=== PATIENT | female | born 1995 | race Caucasian/White ===

== ENCOUNTER 2016-07-12 21:25 | Emergency (ER) | payer OTHER ==
[2016-07-12 21:49] VITALS: BP 139/74
--- NOTE | 2016-07-12 23:08 | UC ---
Throat Pain/Nasal Jamie HPI - HPI Summary HPI Summary: [address] AND PAIN WITH SWALLOWING. NO FEVER, COUGH, NAUSEA OR EAR PAIN. - History of Current Complaint Chief Complaint: UCRespiratory Stated Complaint: SWOLLEN TONSILS WITH WHITE SPOTS Time Seen by Provider: 07/12/16 21:56 Hx Obtained From: Patient Hx Last Menstrual Period: 3 wks ago Onset/Duration: Gradual Onset, Lasting Days, Still Present Severity: Moderate Pain Intensity: 2 Pain Scale Used: 0-10 Numeric Cough: None Associated Signs & Symptoms: Negative: Wheezing, Hoarseness, Sinus Discomfort, Nasal Discharge, Fever, Vomiting, Rash - Allergies/Home Medications Allergies/Adverse Reactions: Allergies Allergy/AdvReac Type Severity Reaction Status Date / Time No Known Allergies Allergy Verified 07/12/16 21:49 Home Medications: Home Medications Esomeprazole Magnesium [Nexium 24Hr] 07/12/16 [History] PMH/Surg Hx/FS Hx/Imm Hx Previously Healthy: Yes - Surgical History Surgical History: None - Family History Known Family History: Positive: Hypertension - Social History Alcohol Use: Occasionally Substance Use Type: None Smoking Status (MU): Never Smoked Tobacco Review of Systems Constitutional: Negative ENT: Sore Throat Respiratory: Negative Cardiovascular: Negative Gastrointestinal: Negative All Other Systems Reviewed And Are Negative: Yes Physical Exam Triage Information Reviewed: Yes Appearance: Well-Appearing, No Pain Distress, Well-Nourished Vital Signs: Initial Vital Signs Temp 98.9 F 07/12/16 21:47 Pulse 74 07/12/16 21:47 Resp 18 07/12/16 21:47 BP 139/74 07/12/16 21:47 Pulse Ox 99 07/12/16 21:47 Vital Signs Reviewed: Yes Eyes: Positive: Conjunctiva Clear ENT: Positive: Hearing grossly normal, Pharynx normal, TMs normal, Tonsillar swelling. Negative: Pharyngeal erythema, Tonsillar exudate, Muffled/hoarse voice Neck: Positive: Supple, Tenderness @ - SPFL CERVICAL LAD, Enlarged Nodes @ - SPFL CERVICAL LAD Respiratory Exam: Normal Cardiovascular Exam: Normal Abdomen Description: Positive: Soft Musculoskeletal: Positive: No Edema Neurological: Positive: Alert Psychological: Positive: Age Appropriate Behavior Skin: Negative: rashes Diagnostics - Laboratory Diagnostic Studies Completed/Ordered: RAPID STREP NEGATIVE Throat Pain/Nasal Course/Dx - Differential Dx/Diagnosis Provider Diagnoses: ACUTE TONSILLITIS Discharge - Discharge Plan Condition: Stable Disposition: HOME Patient Education Materials: Tonsillitis (ED) Referrals: [facility] EARNEST Haddad [Primary Care Provider] - If Needed Additional Instructions: RAPID STREP NEGATIVE. NO INDICATION FOR ANTIBIOTICS AT PRESENT. LIKELY VIRAL ETIOLOGY. HYDRATE, OTC MEDS NEEDED. OTC CHLORASEPTIC OR CEPACOL LOZENGES FOR SORE THROAT NEEDED. SEEK FOLLOW-UP IF NOT IMPROVING EXPECTED OVER THE NEXT 1-2 WEEKS.
== END 2016-07-12 23:16 | disposition home or self-care (01) ==
LOC: UCEAST 21:25
DX: J03.90 Acute tonsillitis, unspecified (principal)
CPT/HCPCS: 87651; 99211; G0463

== ENCOUNTER 2016-08-14 13:15 | Emergency (ER) | payer OTHER ==
[2016-08-14 14:06] VITALS: BP 111/67
--- NOTE | 2016-08-14 16:28 | UC ---
Dizzy HPI HPI Summary: The patient comes in today for: 1. Vertigo: Onset: Today Palliative/provocative: Staying in one position makes it better. Head movements makes it worse. Quality: Spinning. Region: Head Severity: 07/01 Time: Constant, but severity varies. Associated symptoms: Event of onset: She was in bed and turned. At that time, there was a spinning sensation. Head injury: None. Nausea: present--worse with vertigo being worse. Fever: None. * - History Of Current Complaint Chief Complaint: UCDizziness Stated Complaint: VERTIGO Time Seen by Provider: 08/14/16 16:17 Hx Obtained From: Patient Hx Last Menstrual Period: 08/07/16 ?: No - Allergies/Home Medications Allergies/Adverse Reactions: Allergies Allergy/AdvReac Type Severity Reaction Status Date / Time No Known Allergies Allergy Verified 07/12/16 21:49 PMH/Surg Hx/FS Hx/Imm Hx Previously Healthy: No - Family planning/BCP Endocrine History Of: Denies: Diabetes, Thyroid Disease, Hyperthyroidism, Hypothyroidism, Dyslipidemia Cardiovascular History Of: Denies: Cardiac Disorders, Hypertension, Pacemaker/ICD, Myocardial Infarction , Congestive Heart Failure, Atrial Fibrillation, Deep Vein Thrombosis, Bleeding Disorders Respiratory History Of: Denies: COPD, Asthma, Bronchitis, Pneumonia, Pulmonary Embolism GI/ History Of: Reports: Gastroesophageal Reflux - No medications for this "little bit lately." Denies: Ulcer, Gastrointestinal Bleed, Gall Bladder Disease, Kidney Stones, Diverticulitis, Renal Disease, Urosepsis Neurological History Of: Denies: TIA, CVA, Dementia, Seizures, Migraine Psychological History Of: Denies: Anxiety, Depression, Bipolar Disorder, Schizophrenia, Post Traumatic Stress Disorder Cancer History Of: Denies: Lung Cancer, Colorectal Cancer, Breast Cancer, Prostate Cancer, Cervical Cancer Other History Of: Negative For: HIV, Hepatitis B, Hepatitis C, Anticoagulant Therapy - Surgical History Surgical History: None - Family History Known Family History: Positive: Hypertension Negative: None, Cardiac Disease, Diabetes - Social History Occupation: Student Alcohol Use: Occasionally Substance Use Type: Marijuana Smoking Status (MU): Never Smoked Tobacco Review of Systems Constitutional: Negative Skin: Negative Eyes: Negative ENT: Negative Respiratory: Negative Cardiovascular: Negative Gastrointestinal: Negative Genitourinary: Negative All Other Systems Reviewed And Are Negative: Yes Physical Exam Triage Information Reviewed: Yes Appearance: Well-Appearing, No Pain Distress, Well-Nourished Vital Signs: Initial Vital Signs Temp 98.5 F 08/14/16 14:00 Pulse 69 08/14/16 14:00 Resp 16 08/14/16 14:00 BP 111/67 08/14/16 14:00 Pulse Ox 100 08/14/16 14:00 Vital Signs Reviewed: Yes Eyes: Positive: Conjunctiva Clear. Negative: Discharge ENT: Positive: Hearing grossly normal. Negative: Pharyngeal erythema, Nasal congestion, Nasal drainage, TM bulging, TM dull, TM red, Tonsillar swelling, Tonsillar exudate Dental: Negative: Gross Decay/Caries @, Dental Fracture @ Neck: Positive: Supple, Nontender, No Lymphadenopathy. Negative: Nuchal Rigidity Respiratory: Positive: Lungs clear, No respiratory distress, No accessory muscle use. Negative: Crackles, Wheezing Cardiovascular: Positive: RRR, No Murmur Abdomen Description: Positive: Nontender, No Organomegaly, Soft. Negative: Distended, Guarding Musculoskeletal: Positive: Strength Intact, ROM Intact, No Edema Neurological: Positive: Alert, Muscle Tone Normal, Fatigued Psychological: Positive: Age Appropriate Behavior, Consolable Skin: Negative: rashes, breakdown Diagnostics - Laboratory ABG Interpretation: [place]-Halpike maneuver: Facing rt: min. symptoms. Facing left: max symptoms Dizzy Course/Dx - Course Course Of Treatment: The patient was put through the [place] (barbeque) maneuver. - Differential Dx/Diagnosis Provider Diagnoses: benign paroxysmal positional vertigo. Discharge - Discharge Plan Condition: Stable Disposition: HOME Patient Education Materials: Vertigo (ED), Benign Paroxysmal Positional Vertigo (ED) Referrals: [facility] EARNEST Haddad [Primary Care Provider] - 1 Week (Please see your primary care provider in a week to see how well you are doing. If you get worse, please be seen sooner in the ER or through us.)
== END 2016-08-14 16:54 | disposition home or self-care (01) ==
LOC: UCEAST 13:15
DX: H81.10 Benign paroxysmal vertigo, unspecified ear (principal)
CPT/HCPCS: 99212; G0463